=== PATIENT | female | born 1955 | race Two or more races ===

== ENCOUNTER → 2019-06-22 | Outpatient (CLI) | payer OTHER | END | disposition home or self-care (01) | LOC: NUCLEAR 10:00 | DX: M81.0 Age-related osteoporosis without current pathological fracture (principal) ==

== ENCOUNTER 2021-07-06 07:23 | Outpatient (CLI) | payer OTHER | END 2021-07-06 07:25 | disposition home or self-care (01) | LOC: SONOGRAMA 07:23 | DX: Q44.6 Cystic disease of liver (principal); I10 Essential (primary) hypertension ==

== ENCOUNTER 2022-06-30 10:22 | Outpatient (CLI) | payer OTHER | END 2022-06-30 10:26 | disposition home or self-care (01) | LOC: NUCLEAR 10:22 | PROVIDERS: ATTEND Internal Medicine | DX: M81.0 Age-related osteoporosis without current pathological fracture (principal) ==

== ENCOUNTER 2022-09-30 07:50 | Outpatient (CLI) | payer OTHER | END 2022-09-30 07:51 | disposition home or self-care (01) | LOC: NUCLEAR 07:50 | PROVIDERS: ATTEND Internal Medicine | DX: I10 Essential (primary) hypertension (principal); E78.9 Disorder of lipoprotein metabolism, unspecified ==

== ENCOUNTER 2024-07-18 13:03 | Outpatient (CLI) | payer OTHER | END 2024-07-18 13:04 | disposition home or self-care (01) | LOC: NUCLEAR 13:03 | PROVIDERS: ATTEND Internal Medicine | DX: Z13.820 Encounter for screening for osteoporosis (principal); M81.0 Age-related osteoporosis without current pathological fracture ==